=== PATIENT | male | born 1985 | race Caucasian/White ===

== ENCOUNTER 2017-02-05 00:23 | Emergency (ER) | payer SELFPAY ==
[~2017-02-05] VITALS: Ht 177.8 cm; Wt 65.8 kg
[2017-02-05 01:12] VITALS: BP 118/70
--- NOTE | 2017-02-05 02:10 | PHYS DOC ---
Past Medical History Past Medical History: No Pertinent History Past Surgical History: No Surgical History Additional Information: 1 pk/day Alcohol Use: Rarely Drug Use: Marijuana Adult General Chief Complaint Chief Complaint: SHOULDER INJURY HPI HPI Patient is a 31 year old M who presents with right shoulder pain for the past 3 days. Patient declines any injury to his right shoulder. Patient initially thought she slept on it wrong however he's having difficulty picking up things and raising his arm. Patient denies any other symptoms. Patient has no other complaints. Review of Systems Review of Systems GEN: Denies fevers, chills, sweats HEENT: Denies blurred vision, sore throat CV: Denies chest pain RESP: Denies shortness of air, cough GI: Denies n/v/d NEURO: Denies confusion, dizziness MSK: Right shoulder pain Current Medications Current Medications Current Medications Medications (Trade) Dose Ordered Sig/Joslyn Start Time Stop Time Status Last Admin Dose Admin Ketorolac Tromethamine (Toradol Im) 60 mg 1X ONCE 02/05/17 02:15 02/05/17 02:16 DC 02/05/17 02:12 60 MG Allergies Allergies Allergies Coded Allergies Type Severity Reaction Last Updated Verified Penicillins Allergy Unknown 02/05/17 Yes Physical Exam Physical Exam GEN.: No apparent distress. Alert and oriented. HEENT: Head is normocephalic, atraumatic NECK: Supple. LUNGS: CTAB. HEART: RRR, S1, S2 present. Peripheral pulses intact ABDOMEN: Soft, nontender. Positive bowel sounds. EXTREMITIES: Without any cyanosis. Tenderness palpation to the right shoulder decreased range of motion secondary to pain and decreased flexion and abduction secondary to pain, right upper shoulder many neurovascular intact NEUROLOGIC: Normal speech, normal tone PSYCHIATRIC: Normal affect, normal mood. SKIN: No ulcerations Current Patient Data Vital Signs Vital Signs Date Time Temp Pulse Resp B/P (MAP) Pulse Ox O2 Delivery O2 Flow Rate FiO2 02/05/17 01:12 99.0 60 20 100 Room Air 99.0 EKG EKG [] Radiology/Procedures Radiology/Procedures X-ray of the right shoulder shows no obvious fracture[] Course & Med Decision Making Course & Med Decision Making Pertinent Labs and Imaging studies reviewed. (See chart for details) MDM: After reviewing the chart, CC/HPI/PMH, physical exam, [radiological results], I do not believe the patient has a significant injury to his right shoulder warranting further workup and/or admission at this time. I believe the patient has an acute rotator cuff strain and recommended anti-inflammatory treatment with follow-up with his PCP. Patient is stable for discharge. Additional verbal discharge instructions were provided to the patient and that if symptoms get worse or any new symptoms arise that are worrisome to the patient he is to return to the emergency room immediately [] Dragon Disclaimer Dragon Disclaimer This electronic medical record was generated, in whole or in part, using a voice recognition dictation system. Departure Departure Impression: Primary Impression: Right shoulder pain Additional Impression: Rotator cuff strain Disposition: HOME, SELF-CARE Condition: IMPROVED Referrals: NO PCP (PCP) Patient Instructions: Shoulder Pain Additional Instructions: Please follow-up with your family physician in the next one to 2 days and return if symptoms increase Scripts Ibuprofen (IBUPROFEN) 800 Mg Tablet 800 MG PO PRN Q8HRS Y for INFLAMMATION for 10 Days, #30 TAB Prov: BRANDYN WILSON DO 02/05/17 Problem Qualifiers BRANDYN WILSON DO Feb 05, 2017 02:10
[2017-02-05] MEDS ORDERED: KETOROLAC 60 MG/2 ML INJ. IM ONE (02:15)
[2017-02-05] MEDS ORDERED: IBUP-1060 PO (02:26)
--- NOTE | 2017-02-05 08:44 | RAD ---
Three-view right shoulder radiographs 02/05/2017 Clinical history: Right shoulder pain. AP internal and external oblique and transscapular digital radiographs of the right shoulder were obtained. No fracture or dislocation of the right shoulder is seen. No significant degenerative changes are seen. Impression: Negative study.
== END 2017-02-05 03:03 | disposition home or self-care (01) ==
LOC: ER 00:23
DX: S46.011A Strain of muscle(s) and tendon(s) of the rotator cuff of right shoulder, initial encounter (principal); F17.200 Nicotine dependence, unspecified, uncomplicated; Z88.0 Allergy status to penicillin; X58.XXXA Exposure to other specified factors, initial encounter; Y93.89 Activity, other specified; Y92.89 Other specified places as the place of occurrence of the external cause; Y99.8 Other external cause status
CPT/HCPCS: 73030; 96372; 99284; J1885